=== PATIENT | female | born 1950 | race African-American/Black ===

== ENCOUNTER 2016-07-15 10:14 | Inpatient (IN) ==
--- NOTE | 2016-07-15 10:38 | Emergency Department Note ---
IMame Gwan, am scribing for, and in the presence of, Lars Wick MD 10:33 . IShamika James D, MD, personally performed the services described in this documentation, ascribed by Radha Vilchis in my presence, and it is both accurate and complete . Arrival - Arrival Chief Complaint: Syncope Stated Complaint: weakness,dizziness,feels faint,pacemaker ED Nursing Triage Note: states she feels like she is going to pass out. pt has been seen 3 times for this and nobody can find anything wrong Mode of Arrival: Ambulatory Limitations: No Limitations Source: Patient, Significant other, Old Records Reviewed, RN Notes Reviewed Time Seen by Provider: 07/15/16 10:23 - History of Present Illness HPI Narrative: Patient is a 65 y/o black female who presents to the ED for further evaluation of near syncopal episodes, generalized weakness, dizziness and nausea with an onset 2 weeks ago. Patient confirmed that she has been to the ED at [facility] at least 3 times for the same reason with negative results. Patient then stated that when her sxs came on today, she alerted Dr. Matute's office and was prompted to report to ED for further evaluation. She denies any chest pain. Patient stated that she was last seen in Dr. Matute's office 3 weeks ago to which her defibrillator and pacemaker were checked. During exam, pt stated that she has been having fast heart beats. No other problems/complaints reported in ED. Onset (ago): week(s) Consistency: constant Severity: moderate Allergies/Adverse Reactions: Allergies Allergy/AdvReac Type Severity Reaction Status Date / Time nitroglycerin AdvReac Intermediate Headache Verified 01/09/15 12:43 adhesive tape AdvReac Mild ITCHING Verified 01/09/15 12:43 NSAIDS (Non-Steroidal AdvReac Mild Fatigued Verified 01/09/15 12:43 Anti-Inflamma Home Medications: Home Medications Medication Instructions Recorded Confirmed Type Omeprazole 20 capsule PO DAILY 07/26/14 07/15/16 History Aspirin EC Tab 81 mg PO DAILY 09/19/14 07/15/16 History Pravastatin [Pravachol] 20 mg PO BEDTIME 11/30/14 07/15/16 History Isosorbide Mononitrate [Imdur] 30 mg PO DAILY #0 tablet 12/15/14 07/15/16 Rx Ascorbic Acid Tab [Vitamin C Tab] 500 mg PO DAILY 07/15/16 07/15/16 History Carvedilol [Coreg] 25 mg PO BID 07/15/16 07/15/16 History Ferrous Sulfate Tab [Feosol 325 mg PO DAILY 07/15/16 07/15/16 History Original Tab] Furosemide Tab [Lasix Tab] 40 mg PO QAM 07/15/16 07/15/16 History Loratadine Tab [Claritin Tab] 10 mg PO DAILY 07/15/16 07/15/16 History Magnesium Chloride [Slow Mag] 64 mg PO DAILY 07/15/16 07/15/16 History Potassium Chloride 40 meq PO DAILY 07/15/16 07/15/16 History Warfarin [Coumadin] 1 mg PO SUTUTHSA 07/15/16 07/15/16 History Warfarin [Coumadin] 2 mg PO MOWEFR 07/15/16 07/15/16 History amLODIPine [Norvasc] 5 mg PO DAILY 07/15/16 07/15/16 History hydrALAZINE TAB [Apresoline Tab] 10 mg PO 1200 07/15/16 07/15/16 History hydrALAZINE TAB [Apresoline Tab] 20 mg PO QAM 07/15/16 07/15/16 History hydrALAZINE TAB [Apresoline Tab] 20 mg PO QPM 07/15/16 07/15/16 History Review of System - Review of System 12 point system: reviewed and no additional remarkable complaints except as stated - Review of System Constitutional: Present: as per HPI, weakness. Absent: diaphoresis Eyes: Absent: discharge Head/Ears/Nose/Throat: Absent: earache Respiratory: Absent: cough Cardiovascular: Present: as per HPI, syncope (near syncope ). Absent: chest pain Gastrointestinal: Present: as per HPI, nausea. Absent: abdominal pain, diarrhea Genitourinary female: Absent: dysuria Musculoskeletal: Absent: arm pain, back pain, leg pain, neck pain Skin: Absent: rash Neurological: Present: as per HPI, weakness, other (dizziness). Absent: headache Medical,Surgical,& Family Hx - Medical History Cardio: History of: Cardiac Dysrhythmia (A FIB), CHF, Hypertension No history of: IA, Pacemaker Psychological: No history of: Anxiety Disorders, ADHD, Behavior Problems, Bipolar Disorder, Depression, Previous Suicide Attempt, Psychiatric/Substance Abuse Tx, Schizophrenia, Violent Behavior, Psychiatric Problems Neurology: History of: TIA (07/2014) No history of: Seizures HEENT: History of: Eye Problem (READING GLASSES), Glaucoma (POSSIBLE) Endocrine: History of: Dyslipidemia Rheumatology: History of;: Gout, Rheumatoid Arthritis Respiratory: No history of: Asthma, Bronchitis, COPD, Obstructive Sleep Apnea Gastrointestinal: History of: GERD No history of: Bowel Obstruction, Gastrointestinal Bleed, Hemorrhoids Hematology: No history of: Blood Transfusion Reaction Reproductive: History of: Breast Cancer (2005) Other: History of: Cancer (BREAST CANCER), Skin Problems (plastic tape causes rash and nitro patch and paste) No history of: Anesthesia Reactions - Surgical History Cardiac Surgeries: Sugical HX of: Cardiac Catheterization Thoracic Surgeries: Patient denies;: Organ Transplant Neurologic Surgeries: Patient denies: Neurologic Surgery HEENT Surgeries: Surgical HX of: Eye Surgery (BILATERAL CATARACT) Abdominal Surgeries: Surgical HX of: Abdominal Surgery, Colonoscopy (negative, routine), EGD (negative, routine) Reproductive Surgeries: Surgical HX of;: Breast Surgery (LEFT MASTECTOMY), Gynecologic Surgery, Hysterectomy Orthopedic Surgeries: Surgical HX of;: Implanted Devices (RIGHT SUBCLAVIAN MEDIPORT) - Family History Family History: Reports;: Family Cancer (mother(breast), sister(rectal)), Family Diabetes (brother, sister), Family Hypertension (mother, father), Family Stroke (father) Comment Only: Family Heart Disease (brother, mother) - Social History Smoking Status: Never smoker Frequency of Alcohol Use: None Type of Drug Use: None Exam Physical Examination: GENERAL: This is a black female in no apparent distress. VITAL SIGNS: HEENT: Head is normocephalic and atraumatic. Pupils are equally round and reactive to light. Extraocular movement are intact. Oropharynx is benign with moist mucous membranes. NECK: Neck is soft and supple without tenderness. There are no masses. There is no lymphadenopathy. LUNGS: Lungs are clear to auscultation bilaterally. Chest rises symmetrically. There is no chest wall tenderness. CV: Heart is regular rate and rhythm without murmurs, rubs, or gallops. ABDOMEN: Abdomen is soft, non-tender to palpation. There are no abnormal masses palpated. There is no organomegaly. Bowel sounds are present and active. SKIN: Skin is warm and dry. No rash. EXTREMITIES: Patient has full range of motion without tenderness. There is no pedal edema. NEUROLOGIC: Awake, alert, and oriented x4. Cranial nerves II through XII are grossly intact. There are no motorsensory deficits. PSYCHIATRIC: Normal affect. Normal mood. Vital Signs: Vital Signs Temperature 98.0 F 07/15/16 10:29 Pulse Rate 61 07/15/16 10:29 Respiratory Rate 20 07/15/16 10:29 Blood Pressure 169/81 07/15/16 10:29 O2 Sat by Pulse Oximetry 100 07/15/16 10:29 Course Course Narrative: AICD was interrogated. Patient has short periods of atrial fib lasting at most 10 minutes. This does not seem to be associated with her symptoms. - Consultations Consultation #1: Discussed with Dr. Matute. He will see the patient in the emergency department. Patient will be admitted to his service. Time: 11:26 Disposition Clinical Impression: Near syncope, Cardiomyopathy, Essential hypertension, Paroxysmal a-fib Case discussed with: patient Disposition: Still a Patient Condition: Stable Time of Disposition: 11:58
[2016-07-15 12:25] LABS: Basophils # 0.1 10*3/uL (0.0-0.2); Basophils % 0.5 % (0.0-0.8); Eosinophils # 0.2 10*3/uL (0.0-0.87); Eosinophils % 1.9 % (0.00-10.9); Hematocrit 40.2 VOL% (35.7-47.0); Hemoglobin 13.7 GM/DL (12.0-16.0); Immature Granulocytes % 0.5 %; Immature Granulocytes Absolute 0.05 #; Mean Corpuscular HGB Conc 34.1 GM/DL (32-36); Mean Corpuscular Hemoglobin 27 PG (27-34); Mean Corpuscular Volume 79.6 FL (87-102); Mean Platelet Volume 11.3 FL (9.6-12.0); Monocytes # 0.9 10*3/uL (0.11-0.8); Monocytes % 9.1 % (1.7-12.7); Neutrophils # 6.8 10*3/uL (1.4-7.4); Platelet Count 183 T/CUMM (130-400); Red Blood Count 5.05 MC/CUMM (3.8-5.5); Red Cell Distribution Width 15.7 % (9.3-17.3)
[2016-07-15 12:37] LABS: INR 1.7; PT Patient Result 18.7 SECS; Partial Thromboplastin Time 36.4 SECS (0-40)
[2016-07-15 12:57] LABS: Albumin 3.8 G/DL (3.4-5.0); Bilirubin,Total 0.7 MG/DL (0.2-1.0); Calcium 9.5 MG/DL (8.5-10.1); Osmolality,Calculated 293.6 MOS/KG (273-304); Potassium 4.1 MMOL/L (3.5-5.1); Total Protein 6.9 G/DL (6.4-8.3)
[2016-07-15] MEDS ORDERED: cloNIDine 0.1 MG TABLET PO PRN ×2 (12:58→14:28)
--- NOTE | 2016-07-15 12:59 | XRay Report ---
XR chest 2V Indication: Syncope Comparison: Chest x-ray dated January 13, 2015 Technique: Frontal and lateral views of the chest. Findings: Continued moderate cardiomegaly. Right-sided port catheter and pacemaker apparatus appear unchanged. Chronic change of the lungs without focal consolidation, pleural effusion, or pneumothorax. Visualized osseous and surrounding soft tissue structures appear grossly unchanged. Diffuse osteopenia and multilevel bridging osteophytes of the spine. IMPRESSION: Continued moderate cardiomegaly without montez pulmonary edema. PROCEDURE INTERPRETED AT [facility] DEPARTMENT OF RADIOLOGY Final Report Signed by: Dr Chapincito Amezcua
--- NOTE | 2016-07-15 14:30 | Cardiology History & Physical ---
Monty Acosta April RN, am scribing for, and in the presence of, Levi Matute MD 14:30. Assessment and Plan - Time spent with patient Time spent with patient: Greater than 30 minutes (Due to assessment, planning, documentation, medication review) (1) Essential hypertension Status: Chronic Assessment and plan: We will add as needed clonidine and watch closely. Current Visit: Yes (2) Near syncope Status: Acute Current Visit: Yes (3) Paroxysmal a-fib Status: Chronic Current Visit: Yes (4) Chronic anticoagulation Status: Chronic Assessment and plan: She is chronically anticoagulated on warfarin. Current Visit: Yes (5) Generalized weakness Status: Acute Current Visit: Yes (6) Nonischemic cardiomyopathy Problem details: EF 35% echo done at Dr. 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 Matute Ms. Gardiner is a 65 year old female who is routinely followed by Dr. Matute with a history of paroxysmal atrial fibrillation, nonischemic cardiomyopathy, hypertension, breast cancer, arthritis, gout, and TIAs. She is currently anticoagulated on warfarin. She had an echo done at Dr. Matute's office 06-25 with ejection fraction 35%. She had dual-chamber ICD implant on January 12, [address] Mead for sustained VT, recurrent atrial flutter, cardiomyopathy, heart failure. Heart cath done by Dr. Salazar January 24, 2010 that showed only mild irregularities throughout the vessels and no discrete coronary lesions. She has had several cardioversions in the past. Other surgical history includes bilateral cataracts, appendectomy, mastectomy, and hysterectomy. Family history includes father with stroke, mother with breast cancer and heart disease, and siblings with heart disease. She reports she is a lifetime non-smoker. She lives alone and uses a cane for extra stability. She denies any recent falls. Ms. Gardiner reports dizziness and weakness that has been ongoing for about 3 weeks. She has not passed out but has had several episodes where she felt like she would. These episodes occur mostly when she is up and moving, but have occurred at times when sitting. She reports she has been seen at [facility] 3 times in the last 3 weeks for episodes like this. We will try to get those records. Today when her symptoms came on she got Dr. Matute's office and was told to report to the emergency department for further evaluation. She denies having any chest pain with these episodes, she does state that she gets short of breath at times with these episodes. She reports having palpitations but says they do not necessarily correlate with the symptoms. ICD was interrogated today by [employer] solar sales representative. He notes the interrogation was normal, she had some short 3-9 minute episodes of atrial fibrillation but otherwise nothing indicated a near syncopal episode. CBC is unremarkable, INR is 1.7. All other labs and chest x-ray are pending. Ms. Gardiner is seen in the emergency department. She reports she is not having any dizziness or shortness of breath presently. She continues to deny chest pain. She is currently in atrial fibrillation with heart rates in the 60s. She is not wearing oxygen, O2 sat is 100%. Blood pressures 174/107. She states it is been being elevated some at home as well. She recently saw Dr. Matute in the office was having problems with her blood pressure is mildly and. He did make some medication changes. We will restart her home meds and continue to monitor this. This patient is well known to me with a history of cardiomyopathy which is severe. She had runs of ventricular tachycardia around the time of her ICD placement. She has had presyncope in the past but has not had any documented ventricular rhythm issues and is admitted now with recurring near syncope and severe hypertension. We are adjusting her blood pressure medications and will hopefully be able to get this under control fairly quickly. Her rhythm has been stable based on the ICD interrogation done earlier today. Home Medications Medication Instructions Recorded Confirmed Type Omeprazole 20 capsule PO DAILY 07/26/14 07/15/16 History Aspirin EC Tab 81 mg PO DAILY 09/19/14 07/15/16 History Pravastatin [Pravachol] 20 mg PO BEDTIME 11/30/14 07/15/16 History Isosorbide Mononitrate [Imdur] 30 mg PO DAILY #0 tablet 12/15/14 07/15/16 Rx Ascorbic Acid Tab [Vitamin C Tab] 500 mg PO DAILY 07/15/16 07/15/16 History Carvedilol [Coreg] 25 mg PO BID 07/15/16 07/15/16 History Ferrous Sulfate Tab [Feosol 325 mg PO DAILY 07/15/16 07/15/16 History Original Tab] Furosemide Tab [Lasix Tab] 40 mg PO QAM 07/15/16 07/15/16 History Loratadine Tab [Claritin Tab] 10 mg PO DAILY 07/15/16 07/15/16 History Magnesium Chloride [Slow Mag] 64 mg PO DAILY 07/15/16 07/15/16 History Potassium Chloride 40 meq PO DAILY 07/15/16 07/15/16 History Warfarin [Coumadin] 1 mg PO SUTUTHSA 07/15/16 07/15/16 History Warfarin [Coumadin] 2 mg PO MOWEFR 07/15/16 07/15/16 History amLODIPine [Norvasc] 5 mg PO DAILY 07/15/16 07/15/16 History hydrALAZINE TAB [Apresoline Tab] 10 mg PO 1200 07/15/16 07/15/16 History hydrALAZINE TAB [Apresoline Tab] 20 mg PO QAM 07/15/16 07/15/16 History hydrALAZINE TAB [Apresoline Tab] 20 mg PO QPM 07/15/16 07/15/16 History Allergies Allergy/AdvReac Type Severity Reaction Status Date / Time nitroglycerin AdvReac Intermediate Headache Verified 01/09/15 12:43 adhesive tape AdvReac Mild ITCHING Verified 01/09/15 12:43 NSAIDS (Non-Steroidal AdvReac Mild Fatigued Verified 01/09/15 12:43 Anti-Inflamma - Constitutional Constitutional: Present: as per HPI - EENT Eyes: Present: requires corrective lense. Absent: loss of vision Ears: Present: tinnitus. Absent: ear pain Nose, mouth and throat: Absent: dysphagia, epistaxis, headache(s), hoarseness, neck pain, sore throat - Cardiovascular Cardiovascular: Present: dyspnea, lightheadedness, palpitations. Absent: chest pain at rest, chest pain with activity, diaphoresis, edema, radiating jaw, neck or arm pain, orthopnea - Respiratory Respiratory: Present: cough, dyspnea. Absent: hemoptysis, wheezing - Gastrointestinal Gastrointestinal: Absent: abdominal pain, constipation, diarrhea, hematemesis, hematochezia, melena, nausea, vomiting - Genitourinary Genitourinary: Absent: dysuria, hematuria - Musculoskeletal Musculoskeletal: Present: limited range of motion, muscle weakness. Absent: back pain - Neurological Neurological: Present: abnormal gait, dizziness, other (Near-syncope). Absent: confusion, frequent falls, headache(s) - Psychiatric Psychiatric: Absent: anxiety, depression - Endocrine Endocrine: Present: fatigue - Hematologic/Lymphatic Hematologic/Lymphatic: Present: easy bruising. Absent: easy bleeding Medical,Surgical,& Family Hx - Medical History Cardio: History of: Cardiac Dysrhythmia (A FIB), CHF, Hypertension Psychological: No history of: Previous Suicide Attempt Neurology: History of: TIA (07/2014) HEENT: History of: Eye Problem (READING GLASSES) Endocrine: History of: Dyslipidemia Rheumatology: History of;: Gout, Rheumatoid Arthritis Gastrointestinal: History of: GERD Reproductive: History of: Breast Cancer (2005) Other: History of: Cancer (BREAST CANCER), Skin Problems (plastic tape causes rash and nitro patch and paste) - Surgical History Cardiac Surgeries: Sugical HX of: Cardiac Catheterization (1999), Internal Defibrillator (Dual-chamber ICD, 2014) HEENT Surgeries: Surgical HX of: Eye Surgery (BILATERAL CATARACT) Abdominal Surgeries: Surgical HX of: Abdominal Surgery, Colonoscopy (negative, routine), EGD (negative, routine) Reproductive Surgeries: Surgical HX of;: Breast Surgery (LEFT MASTECTOMY), Gynecologic Surgery, Hysterectomy Orthopedic Surgeries: Surgical HX of;: Implanted Devices (RIGHT SUBCLAVIAN MEDIPORT) - Family History Family History: Reports;: Family Cancer (mother(breast), sister(rectal)), Family Diabetes (brother, sister), Family Heart Disease (brother, mother, sister ), Family Hypertension (mother, father), Family Stroke (father) - Social History Smoking Status: Never smoker Have you smoked in the last 12 months: No Frequency of Alcohol Use: None Type of Drug Use: None Functional capacity: uses cane/walker Cardiology Physical Exam - Constitutional Vitals: Vital Signs Temp Pulse Resp BP Pulse Ox 98.0 F 61 20 174/107 99 07/15/16 10:29 07/15/16 12:00 07/15/16 12:00 07/15/16 12:00 07/15/16 12:00 Intake and Output 07/14/16 07/15/16 07/15/16 22:59 06:59 14:59 Other: Weight 176 lb Patient Weight 07/16/16 06:59 Weight 176 lb General appearance: no acute distress, over weight - Head Head exam: Absent: abrasion, contusion, hematoma - Eye Eye exam: Absent: laceration to eyelids Pupils: Absent: constricted, dilated - Neck Neck exam: Absent: tenderness - Respiratory Respiratory exam: Present: clear to auscultation bilaterally. Absent: accessory muscle use, chest wall tenderness - Cardiovascular Cardiovascular exam: Present: irregular rhythm. Absent: diastolic murmur, rubs , systolic murmur - GI/Abdominal GI/Abdominal exam: Present: normal bowel sounds, soft. Absent: tenderness - Extremities Exam Extremities exam: Absent: calf tenderness, edema - Neurological Exam Neurological exam: Present: alert, oriented X3 - Psychiatric Psychiatric exam: Present: normal affect, normal mood - Skin Skin exam: Present: warm, dry. Absent: abrasion, cyanosis Result/EKG - Labs CBC & BMP: 07/15/16 11:59 07/15/16 11:59 Lab Results: I have reviewed the past 24 hour labs Labs: Laboratory Results - last 24 hr 07/15/16 11:59 WBC 10.0 RBC 5.05 Hgb 13.7 Hct 40.2 MCV 79.6 L MCH 27 MCHC 34.1 RDW 15.7 Plt Count 183 MPV 11.3 Neut % (Auto) 68.0 Lymph % (Auto) 20.0 L [place] % (Auto) 9.1 Eos % (Auto) 1.9 Baso % (Auto) 0.5 Neut # (Auto) 6.8 Lymph # (Auto) 2.0 [place] # (Auto) 0.9 H Eos # (Auto) 0.2 Baso # (Auto) 0.1 Immature Gran % 0.5 Nucleated RBC % 0.0 Immature Gran # 0.05 Nucleated RBCs # 0.00 - EKG EKG results: interpreted by me EKG shows: atrial fibrillation I, Levi Matute MD, personally performed the services described in this documentation, ascribed by Neha Millan RN in my presence, and it is both accurate and complete 430 .
[2016-07-15] MEDS ORDERED: MAGNESIUM SULF RIDER 4 GM in PREMIX 1 EACH IV PRN (15:31)
[2016-07-15] MEDS ORDERED: MAGNESIUM SULF RIDER 2 GM in PREMIX 1 EACH IV PRN (15:31)
[2016-07-15] MEDS ORDERED: SODIUM CHLORIDE 0.9% 1,000 ML IV SCH (15:31)
--- NOTE | 2016-07-15 16:04 | EKG Report ---
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
[2016-07-15 17:17] LABS: Basophils # 0.1 10*3/uL (0.0-0.2); Basophils % 0.5 % (0.0-0.8); Eosinophils # 0.2 10*3/uL (0.0-0.87); Hematocrit 39.5 VOL% (35.7-47.0); Hemoglobin 13.3 GM/DL (12.0-16.0); Immature Granulocytes % 0.2 %; Immature Granulocytes Absolute 0.02 #; Lymphocytes # 2.2 10*3/uL (1.4-4.0); Lymphocytes % 22.2 % (21.3-54.2); Mean Corpuscular HGB Conc 33.7 GM/DL (32-36); Mean Corpuscular Hemoglobin 27 PG (27-34); Mean Corpuscular Volume 78.8 FL (87-102); Mean Platelet Volume 11.9 FL (9.6-12.0); Monocytes # 0.9 10*3/uL (0.11-0.8); Monocytes % 9.3 % (1.7-12.7); Neutrophils # 6.4 10*3/uL (1.4-7.4); Neutrophils % 65.8 % (38.7-73.9); Platelet Count 172 T/CUMM (130-400); Red Blood Count 5.01 MC/CUMM (3.8-5.5); Red Cell Distribution Width 15.6 % (9.3-17.3); White Blood Count 9.7 T/CUMM (4-12)
[2016-07-15 17:28] LABS: INR 1.8; PT Patient Result 20.2 SECS
[2016-07-15 17:39] LABS: Troponin I Only 0.035 NG/ML (0.00-0.045)
--- NOTE | 2016-07-15 17:57 | EKG Report ---
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
[2016-07-15] MEDS ORDERED: hydrALAZINE 10 MG TABLET PO SCH (19:00)
[2016-07-15 21:12] LABS: Troponin I Only 0.046 NG/ML (0.00-0.045)
[2016-07-15] MEDS: PRAVASTATIN 20 MG TABLET PO SCH (21:24)
[2016-07-15] MEDS: CARVEDILOL 25 MG TABLET PO SCH (21:24)
[2016-07-16 00:21] LABS: Troponin I Only 0.048 NG/ML (0.00-0.045)
--- NOTE | 2016-07-16 07:20 | Physician Query Form ---
CLICK EDIT DOCUMENT TO SELECT QUERY ANSWER --> OK --> SIGN Stacey Cardenas RN, CCDS Certified Clinical Telecom Specialist W) [phone] (f) [phone] [email or web address] PROVIDERS: Make your selection(s) from the choices in EACH section by typing an "x" and enter comments in the comment section. Please use your independent medical judgment in providing your response. This request does not imply that any particular answer is desired or expected. CLINICAL INDICATORS: (Providers should not edit this section) The medical record indicates that the patient was admitted with syncope, weakness, dizziness creatinine of 2.20# and GFR of 28# . Clarify which of the following most accurately represents the patient's renal status: ( ) Acute kidney injury (non-traumatic) ( ) Acute renal failure ( ) Acute renal failure with underlying Chronic Kidney Disease (CKD) - please provide stage below ( ) Acute renal failure with pathological renal lesion ( ) Acute renal failure with necrosis ( ) tubular ( ) medullary ( ) cortical ( ) CKD - please provide stage below ( ) End Stage Renal Disease ( ) Acute interstitial nephritis ( ) Hepatorenal syndrome ( ) Other, please specify: ( ) Clinically unable to determine Chronic Kidney Disease Stages Source: National Kidney Disease Foundation ( ) Stage I (eGFR > or = 90) ( ) Stage II (eGFR 60 - 89) ( ) Stage III (eGFR 30 - 59) ( ) Stage IV (eGFR 15 - 29) ( ) Stage V (eGFR < 15 or dialysis) COMMENTS: PLEASE ALSO DOCUMENT RESPONSE IN PROGRESS NOTES AND/OR DISCHARGE SUMMARY Use of terms such as suspected, likely, or probable (associated with a specific diagnosis that is being evaluated, monitored, or treated as if it exists) are acceptable and can be restated in the discharge summary if not ruled out. MTDD
--- NOTE | 2016-07-16 07:41 | EKG Report ---
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
[2016-07-16] MEDS: FUROSEMIDE 40 MG TABLET PO SCH (08:46)
[2016-07-16] MEDS: ASPIRIN EC 81 MG TABLET PO SCH (08:46)
[2016-07-16] MEDS: CARVEDILOL 25 MG TABLET PO SCH ×2 (08:47→21:10)
[2016-07-16] MEDS: ISOSORBIDE MONONITRATE 30 MG TABLET PO SCH (08:48)
[2016-07-16] MEDS: POTASSIUM CHLORIDE 20 MEQ TABLET PO SCH (08:48)
[2016-07-16] MEDS: FERROUS SULFATE 325 MG TABLET PO SCH (08:48)
[2016-07-16] MEDS: PANTOPRAZOLE 40 MG TABLET PO SCH (08:48)
[2016-07-16] MEDS: MAGNESIUM CHLORIDE 64 MG TABLET PO SCH (08:48)
[2016-07-16] MEDS: hydrALAZINE 10 MG TABLET PO SCH ×3 (08:49→21:11)
[2016-07-16] MEDS: ASCORBIC ACID 500 MG TABLET PO SCH (08:49)
[2016-07-16] MEDS: LORATADINE 10 MG TABLET PO SCH (08:49)
[2016-07-16] MEDS: amLODIPine 5 MG TABLET PO SCH (08:49)
[2016-07-16 09:06] LABS: Basophils # 0.1 10*3/uL (0.0-0.2); Basophils % 0.7 % (0.0-0.8); Eosinophils # 0.2 10*3/uL (0.0-0.87); Eosinophils % 1.9 % (0.00-10.9); Hematocrit 41.3 VOL% (35.7-47.0); Hemoglobin 14.2 GM/DL (12.0-16.0); Immature Granulocytes % 0.2 %; Immature Granulocytes Absolute 0.02 #; Lymphocytes # 1.8 10*3/uL (1.4-4.0); Lymphocytes % 20.9 % (21.3-54.2); Mean Corpuscular HGB Conc 34.4 GM/DL (32-36); Mean Corpuscular Hemoglobin 27 PG (27-34); Mean Corpuscular Volume 79.6 FL (87-102); Mean Platelet Volume 11.4 FL (9.6-12.0); Monocytes # 0.8 10*3/uL (0.11-0.8); Monocytes % 9.3 % (1.7-12.7); Neutrophils # 5.8 10*3/uL (1.4-7.4); Platelet Count 180 T/CUMM (130-400); Red Blood Count 5.19 MC/CUMM (3.8-5.5); Red Cell Distribution Width 15.6 % (9.3-17.3); White Blood Count 8.7 T/CUMM (4-12)
[2016-07-16 09:18] LABS: INR 1.7; PT Patient Result 18.6 SECS
[2016-07-16 09:42] LABS: Calcium 9.4 MG/DL (8.5-10.1); Osmolality,Calculated 284.3 MOS/KG (273-304); Potassium 3.9 MMOL/L (3.5-5.1)
--- NOTE | 2016-07-16 16:30 | Cardiology Progress Note ---
Monty Acosta April RN, am scribing for, and in the presence of, Levi Matute MD 16:30. Assessment and Plan (1) Essential hypertension Status: Chronic Current Visit: Yes (2) Near syncope Status: Acute Current Visit: Yes (3) Paroxysmal a-fib Status: Chronic Current Visit: Yes (4) Chronic anticoagulation Status: Chronic Assessment and plan: She is chronically anticoagulated on warfarin. Current Visit: Yes (5) Generalized weakness Status: Acute Current Visit: Yes (6) Nonischemic cardiomyopathy Problem details: EF 35% echo done at Dr. 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 Gardiner is seen resting in bed no acute distress. She denies any chest pain , shortness of breath, or palpitations. She reports she continues to have some dizziness when she gets up at the bathroom, she did not feel like she would pass out. tungsten tender currently shows atrial fibrillation with heart rates in the 60s. Her blood pressure is slightly better today, this morning was 129/93. Chest x-ray done yesterday showed moderate cardiomegaly without montez pulmonary edema. Her troponin last night was trivially elevated at 0.048. Her CK and CK-MB were both negative. She denies having had any chest pain since admission. Patient is better and her blood pressure is better controlled. Will increase activity likely discharge tomorrow. Exam (Progress Note) - Constitutional Vitals: Period Temp Pulse Resp BP Sys/Ballard Pulse Ox Last 24 Hr 97.1 F-98.8 F 59-88 16-20 102-174/65-111 98-100 Exam: General appearance: no acute distress, over weight - Head Head exam: Absent: abrasion, contusion, hematoma - Eye Eye exam: Absent: laceration to eyelids Pupils: Absent: constricted, dilated - Neck Neck exam: Absent: tenderness - Respiratory Respiratory exam: Present: clear to auscultation bilaterally. Absent: accessory muscle use, chest wall tenderness - Cardiovascular Cardiovascular exam: Present: irregular rhythm. Absent: diastolic murmur, rubs , systolic murmur - GI/Abdominal GI/Abdominal exam: Present: normal bowel sounds, soft. Absent: tenderness - Extremities Exam Extremities exam: Absent: calf tenderness, edema - Neurological Exam Neurological exam: Present: alert, oriented X3 - Psychiatric Psychiatric exam: Present: normal affect, normal mood - Skin Skin exam: Present: warm, dry. Absent: abrasion, cyanosis Result/EKG - Labs CBC & BMP: 07/16/16 09:00 07/16/16 09:00 Lab Results: I have reviewed the past 24 hour labs Labs: Laboratory Results - last 24 hr 07/15/16 07/15/16 07/15/16 11:59 11:59 11:59 WBC 10.0 RBC 5.05 Hgb 13.7 Hct 40.2 MCV 79.6 L MCH 27 MCHC 34.1 RDW 15.7 Plt Count 183 MPV 11.3 Neut % (Auto) 68.0 Lymph % (Auto) 20.0 L [place] % (Auto) 9.1 Eos % (Auto) 1.9 Baso % (Auto) 0.5 Neut # (Auto) 6.8 Lymph # (Auto) 2.0 [place] # (Auto) 0.9 H Eos # (Auto) 0.2 Baso # (Auto) 0.1 Immature Gran % 0.5 Nucleated RBC % 0.0 Immature Gran # 0.05 Nucleated RBCs # 0.00 INR 1.7 PT Patient/Control Mix 18.7 D Circ Anticoag PTT 36.4 D Sodium 146 H Potassium 4.1 Chloride 105 Carbon Dioxide 31 Anion Gap 14.1 BUN 26 H Creatinine 2.20 H GFR Calculation 28 BUN/Creatinine Ratio 11.00 Glucose 82 Calculated Osmolality 293.6 Calcium 9.5 Magnesium Total Bilirubin 0.70 AST 18 ALT 20 Alkaline Phosphatase 117 Total Creatine Kinase CK-MB (CK-2) Troponin I Total Protein 6.9 Albumin 3.8 Globulin 3.1 Albumin/Globulin Ratio 1.2 07/15/16 07/15/16 07/15/16 12:27 16:37 16:37 WBC 9.7 RBC 5.01 Hgb 13.3 Hct 39.5 MCV 78.8 L MCH 27 MCHC 33.7 RDW 15.6 Plt Count 172 MPV 11.9 Neut % (Auto) 65.8 Lymph % (Auto) 22.2 [place] % (Auto) 9.3 Eos % (Auto) 2.0 Baso % (Auto) 0.5 Neut # (Auto) 6.4 Lymph # (Auto) 2.2 [place] # (Auto) 0.9 H Eos # (Auto) 0.2 Baso # (Auto) 0.1 Immature Gran % 0.2 Nucleated RBC % 0.0 Immature Gran # 0.02 Nucleated RBCs # 0.00 INR 1.8 PT Patient/Control Mix 20.2 Circ Anticoag PTT Sodium Potassium Chloride Carbon Dioxide Anion Gap BUN Creatinine GFR Calculation BUN/Creatinine Ratio Glucose Calculated Osmolality Calcium Magnesium 2.2 Total Bilirubin AST ALT Alkaline Phosphatase Total Creatine Kinase CK-MB (CK-2) Troponin I Total Protein Albumin Globulin Albumin/Globulin Ratio 07/15/16 07/15/16 07/15/16 16:37 20:37 23:32 WBC RBC Hgb Hct MCV MCH MCHC RDW Plt Count MPV Neut % (Auto) Lymph % (Auto) [place] % (Auto) Eos % (Auto) Baso % (Auto) Neut # (Auto) Lymph # (Auto) [place] # (Auto) Eos # (Auto) Baso # (Auto) Immature Gran % Nucleated RBC % Immature Gran # Nucleated RBCs # INR PT Patient/Control Mix Circ Anticoag PTT Sodium Potassium Chloride Carbon Dioxide Anion Gap BUN Creatinine GFR Calculation BUN/Creatinine Ratio Glucose Calculated Osmolality Calcium Magnesium Total Bilirubin AST ALT Alkaline Phosphatase Total Creatine Kinase 62 76 D 56 D CK-MB (CK-2) < 1.0 < 1.0 < 1.0 Troponin I 0.035 0.046 H D 0.048 H Total Protein Albumin Globulin Albumin/Globulin Ratio 07/16/16 07/16/16 07/16/16 09:00 09:00 09:00 WBC 8.7 RBC 5.19 Hgb 14.2 Hct 41.3 MCV 79.6 L MCH 27 MCHC 34.4 RDW 15.6 Plt Count 180 MPV 11.4 Neut % (Auto) 67.0 Lymph % (Auto) 20.9 L [place] % (Auto) 9.3 Eos % (Auto) 1.9 Baso % (Auto) 0.7 Neut # (Auto) 5.8 Lymph # (Auto) 1.8 [place] # (Auto) 0.8 Eos # (Auto) 0.2 Baso # (Auto) 0.1 Immature Gran % 0.2 Nucleated RBC % 0.0 Immature Gran # 0.02 Nucleated RBCs # 0.00 INR 1.7 PT Patient/Control Mix 18.6 Circ Anticoag PTT Sodium 141 Potassium 3.9 Chloride 104 Carbon Dioxide 30 Anion Gap 10.9 BUN 22 H Creatinine 2.00 H GFR Calculation 32 BUN/Creatinine Ratio 11.00 Glucose 113 H Calculated Osmolality 284.3 Calcium 9.4 Magnesium 2.0 Total Bilirubin AST ALT Alkaline Phosphatase Total Creatine Kinase CK-MB (CK-2) Troponin I Total Protein Albumin Globulin Albumin/Globulin Ratio - Diagnostic Findings Procedure: Chest x-ray: report reviewed by me - EKG EKG results: interpreted by me EKG shows: atrial fibrillation IGiovani Wesley, MD, personally performed the services described in this documentation, ascribed by Neha Millan RN in my presence, and it is both accurate and complete 630 .
[2016-07-16] MEDS: PRAVASTATIN 20 MG TABLET PO SCH (21:11)
--- NOTE | 2016-07-17 08:05 | EKG Report ---
Stationary ECG Study [facility] Test Date: 07/17/2016 7:40 AM Pat Name: SERA TREVIZO Department: Room: 272 Gender: F Nurse Quality: : 1950 Requested by: Levi Matute Order Number: [id number] Reading MD: LEVI MATUTE Intervals [place] Rate: 73 P: 203 MS: 153 QRS: -51 QRSD: 114 T: 140 QT: 448 QTc: 474 Interpretive Statements ELECTRONIC ATRIAL PACEMAKER LEFT ANTERIOR FASCICULAR BLOCK LEFT VENTRICULAR HYPERTROPHY AND ST-T CHANGE POSSIBLE ANTERIOR MYOCARDIAL INFARCTION, OF INDETERMINATE AGE Electronically Signed On 07-17-16 16:12:35 CDT by LEVI MATUTE [email or web address]
[2016-07-17 08:17] LABS: Basophils # 0.1 10*3/uL (0.0-0.2); Basophils % 0.6 % (0.0-0.8); Eosinophils # 0.2 10*3/uL (0.0-0.87); Eosinophils % 2.8 % (0.00-10.9); Hematocrit 40.8 VOL% (35.7-47.0); Hemoglobin 13.7 GM/DL (12.0-16.0); Immature Granulocytes % 0.5 %; Immature Granulocytes Absolute 0.04 #; Lymphocytes # 1.8 10*3/uL (1.4-4.0); Lymphocytes % 23.1 % (21.3-54.2); Mean Corpuscular HGB Conc 33.6 GM/DL (32-36); Mean Corpuscular Hemoglobin 27 PG (27-34); Mean Corpuscular Volume 79.8 FL (87-102); Monocytes # 0.8 10*3/uL (0.11-0.8); Monocytes % 9.9 % (1.7-12.7); Neutrophils # 4.9 10*3/uL (1.4-7.4); Neutrophils % 63.1 % (38.7-73.9); Platelet Count 173 T/CUMM (130-400); Red Blood Count 5.11 MC/CUMM (3.8-5.5); Red Cell Distribution Width 15.4 % (9.3-17.3); White Blood Count 7.8 T/CUMM (4-12)
[2016-07-17] MEDS: FUROSEMIDE 40 MG TABLET PO SCH (08:17)
[2016-07-17] MEDS: LORATADINE 10 MG TABLET PO SCH (08:17)
[2016-07-17] MEDS: POTASSIUM CHLORIDE 20 MEQ TABLET PO SCH (08:17)
[2016-07-17] MEDS: hydrALAZINE 10 MG TABLET PO SCH ×2 (08:17→12:17)
[2016-07-17] MEDS: amLODIPine 5 MG TABLET PO SCH (08:18)
[2016-07-17] MEDS: ASPIRIN EC 81 MG TABLET PO SCH (08:18)
[2016-07-17] MEDS: MAGNESIUM CHLORIDE 64 MG TABLET PO SCH (08:18)
[2016-07-17] MEDS: PANTOPRAZOLE 40 MG TABLET PO SCH (08:18)
[2016-07-17] MEDS: ISOSORBIDE MONONITRATE 30 MG TABLET PO SCH (08:18)
[2016-07-17] MEDS: FERROUS SULFATE 325 MG TABLET PO SCH (08:18)
[2016-07-17] MEDS: ASCORBIC ACID 500 MG TABLET PO SCH (08:18)
[2016-07-17] MEDS: CARVEDILOL 25 MG TABLET PO SCH (08:18)
[2016-07-17 11:48] VITALS: BP 143/94
--- NOTE | 2016-07-17 14:59 | Discharge Summary ---
Motny Acosta April, RN, am scribing for, and in the presence of, Levi Matute MD 14:59. 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 Gardiner is routinely followed by Dr. Matute with a history of paroxysmal atrial fibrillation, nonischemic cardiomyopathy, hypertension, breast cancer, arthritis, gout, and TIAs. She presented to the emergency department 07/15/2016 with complaints of dizziness and weakness has been ongoing for about 3 weeks. She had not passed out but had several episodes where she felt like she would. She did not have any chest pain, but states she did get short of breath at times with these episodes. ICD was interrogated was noted to be functioning normally. Her blood pressure in the emergency department elevated as high as the 170s over 100s. She states it is been being elevated at home as well. Her hydralazine has been increased during this admission to 20 mg every morning, 10 mg at noon, and 20 mg at bedtime. Ms. Gardiner is seen resting in bed in no acute distress. She continues to deny any chest pain. She reports she had one episode of dizziness this morning, but states it is very mild compared to what she was having before admission. She has not had any episodes where she felt like she would pass out since admission.Blood pressures have improved during this admission, current pressure 143/94. Today's labs are unremarkable. electronic device monitor currently shows atrial fibrillation with heart rates in the 60s. Ms. Gardiner has reached maximum benefit from hospitalization and will be discharged home today. Will resume all home meds with the only change being hydralazine to 20 mg every morning, 10 mg at noon, and 20 mg nightly. We will schedule follow-up with Dr. Matute in 1 month with BMP and EKG. - Time spent with patient Time with patient DS: Greater than 30 minutes Diagnosis - Discharge Diagnosis (1) Essential hypertension Status: Chronic (2) Near syncope Status: Resolved (3) Paroxysmal a-fib Status: Chronic (4) Chronic anticoagulation Status: Chronic (5) Generalized weakness Status: Resolved (6) Nonischemic cardiomyopathy Status: Chronic (7) Presence of double chamber implantable cardioverter-defibrillator (ICD) Status: Chronic Specialty Discharge - Follow Up or Referrals Follow up with: Levi Matute MD [Physician] - 1 Month (with bmp ekg ) Discharge Plan - Discharge Data Disposition: Disch To Home/Self Care Condition at Discharge: Stable Discharge Diet: heart healthy Activity: resume usual activities as tolerated Hygiene: no restrictions Weight Bearing at Discharge: weight bear as tolerated Driving: no restrictions Contact your physician if you experience:: fever over 101, Difficulty voiding, Redness or swelling, Nausea/Vomiting, Shortness of breath, Bleeding, pain uncontrolled by pain medications - Discharge Medications New hydrALAZINE TAB [Apresoline Tab] 20 mg PO BID #60 tablet Continue Omeprazole 20 capsule PO DAILY Aspirin EC Tab 81 mg PO DAILY Pravastatin [Pravachol] 20 mg PO BEDTIME Isosorbide Mononitrate [Imdur] 30 mg PO DAILY #0 tablet Loratadine Tab [Claritin Tab] 10 mg PO DAILY PRN PRN Reason: Allergy Symptoms Furosemide Tab [Lasix Tab] 40 mg PO QAM Carvedilol [Coreg] 25 mg PO BID Ascorbic Acid Tab [Vitamin C Tab] 500 mg PO DAILY Warfarin [Coumadin] 1 mg PO SUTUTHSA Warfarin [Coumadin] 2 mg PO MOWEFR hydrALAZINE TAB [Apresoline Tab] 10 mg PO 1200 Potassium Chloride 40 meq PO DAILY amLODIPine [Norvasc] 5 mg PO DAILY Ferrous Sulfate Tab [Feosol Original Tab] 325 mg PO DAILY Magnesium Chloride [Slow Mag] 64 mg PO DAILY Discontinued hydrALAZINE TAB [Apresoline Tab] 20 mg PO QPM hydrALAZINE TAB [Apresoline Tab] 20 mg PO QAM - Follow Up or Referral Follow Up: Levi Matute MD [Physician] - 1 Month (with [facility] ekg ) - Forms/Instructions Exam - Constitutional Vitals: Period Temp Pulse Resp BP Sys/Ballard Pulse Ox Last 24 Hr 97.8 F-98.9 F 53-97 18-20 118-154/57-101 97-100 Exam: General appearance: no acute distress, over weight - Head Head exam: Absent: abrasion, contusion, hematoma - Eye Eye exam: Absent: laceration to eyelids Pupils: Absent: constricted, dilated - Neck Neck exam: Absent: tenderness - Respiratory Respiratory exam: Present: clear to auscultation bilaterally. Absent: accessory muscle use, chest wall tenderness - Cardiovascular Cardiovascular exam: Present: irregular rhythm. Absent: diastolic murmur, rubs , systolic murmur - GI/Abdominal GI/Abdominal exam: Present: normal bowel sounds, soft. Absent: tenderness - Extremities Exam Extremities exam: Absent: calf tenderness, edema - Neurological Exam Neurological exam: Present: alert, oriented X3 - Psychiatric Psychiatric exam: Present: normal affect, normal mood - Skin Skin exam: Present: warm, dry. Absent: abrasion, cyanosis Discharge Results Procedures and tests throughout hospitalization: Pending Orders 07/18/16 04:00 BMP w/ Mg [Basic Metabolic Panel w/Mg] IN AM CBC [Comp Blood Count Auto Diff] IN AM Labs on day of discharge: Labs from last 24 hours 07/17/16 07:47 WBC 7.8 RBC 5.11 Hgb 13.7 Hct 40.8 MCV 79.8 L MCH 27 MCHC 33.6 RDW 15.4 Plt Count 173 MPV 12.0 Neut % (Auto) 63.1 Lymph % (Auto) 23.1 [place] % (Auto) 9.9 Eos % (Auto) 2.8 Baso % (Auto) 0.6 Neut # (Auto) 4.9 Lymph # (Auto) 1.8 [place] # (Auto) 0.8 Eos # (Auto) 0.2 Baso # (Auto) 0.1 Immature Gran % 0.5 Nucleated RBC % 0.0 Immature Gran # 0.04 Nucleated RBCs # 0.00 - Imaging and Cardiology Procedure: Chest x-ray: report reviewed by me DS: Provider Expected date of discharge: 07/17/16 Giovani Acosta Wesley, MD, personally performed the services described in this documentation, ascribed by Neha Millan RN in my presence, and it is both accurate and complete [id number] .
--- NOTE | 2016-07-18 06:58 | Physician Query Form ---
CLICK EDIT DOCUMENT TO SELECT QUERY ANSWER --> OK --> SIGN Stacey Cardenas RN, CCDS Certified Clinical Transmission Line Engineer W) [phone] (f) [phone] [email or web address] PROVIDERS: Make your selection(s) from the choices in EACH section by typing an "x" and enter comments in the comment section. Please use your independent medical judgment in providing your response. This request does not imply that any particular answer is desired or expected. CLINICAL INDICATORS: (Providers should not edit this section) The medical record indicates that the patient was admitted with syncope, weakness, dizziness creatinine of 2.20# and GFR of 28# . Clarify which of the following most accurately represents the patient's renal status: ( ) Acute kidney injury (non-traumatic) ( ) Acute renal failure ( ) Acute renal failure with underlying Chronic Kidney Disease (CKD) - please provide stage below ( ) Acute renal failure with pathological renal lesion ( ) Acute renal failure with necrosis ( ) tubular ( ) medullary ( ) cortical ( ) CKD - please provide stage below ( ) End Stage Renal Disease ( ) Acute interstitial nephritis ( ) Hepatorenal syndrome ( ) Other, please specify: ( ) Clinically unable to determine Chronic Kidney Disease Stages Source: National Kidney Disease Foundation ( ) Stage I (eGFR > or = 90) ( ) Stage II (eGFR 60 - 89) ( ) Stage III (eGFR 30 - 59) ( ) Stage IV (eGFR 15 - 29) ( ) Stage V (eGFR < 15 or dialysis) COMMENTS: PLEASE ALSO DOCUMENT RESPONSE IN PROGRESS NOTES AND/OR DISCHARGE SUMMARY Use of terms such as suspected, likely, or probable (associated with a specific diagnosis that is being evaluated, monitored, or treated as if it exists) are acceptable and can be restated in the discharge summary if not ruled out. MTDD
--- NOTE | 2016-07-21 07:22 | Physician Query Form ---
CLICK EDIT DOCUMENT TO SELECT QUERY ANSWER --> OK --> SIGN Stacey Cardenas RN, CCDS Certified Clinical Green Chain Marker W) [phone] (f) [phone] [email or web address] PROVIDERS: Make your selection(s) from the choices in EACH section by typing an "x" and enter comments in the comment section. Please use your independent medical judgment in providing your response. This request does not imply that any particular answer is desired or expected. CLINICAL INDICATORS: (Providers should not edit this section) The medical record indicates that the patient was admitted with syncope, weakness, dizziness creatinine of 2.20# and GFR of 28# . Clarify which of the following most accurately represents the patient's renal status: ( ) Acute kidney injury (non-traumatic) ( ) Acute renal failure ( ) Acute renal failure with underlying Chronic Kidney Disease (CKD) - please provide stage below ( ) Acute renal failure with pathological renal lesion ( ) Acute renal failure with necrosis ( ) tubular ( ) medullary ( ) cortical ( ) CKD - please provide stage below ( ) End Stage Renal Disease ( ) Acute interstitial nephritis ( ) Hepatorenal syndrome ( ) Other, please specify: ( ) Clinically unable to determine Chronic Kidney Disease Stages Source: National Kidney Disease Foundation ( ) Stage I (eGFR > or = 90) ( ) Stage II (eGFR 60 - 89) ( ) Stage III (eGFR 30 - 59) ( ) Stage IV (eGFR 15 - 29) ( ) Stage V (eGFR < 15 or dialysis) COMMENTS: PLEASE ALSO DOCUMENT RESPONSE IN PROGRESS NOTES AND/OR DISCHARGE SUMMARY Use of terms such as suspected, likely, or probable (associated with a specific diagnosis that is being evaluated, monitored, or treated as if it exists) are acceptable and can be restated in the discharge summary if not ruled out. MTDD
--- NOTE | 2016-07-22 07:55 | Physician Query Form ---
CLICK EDIT DOCUMENT TO SELECT QUERY ANSWER --> OK --> SIGN Stacey Cardenas RN, CCDS Certified Clinical Resource Paraprofessional W) [phone] (f) [phone] [email or web address] PROVIDERS: Make your selection(s) from the choices in EACH section by typing an "x" and enter comments in the comment section. Please use your independent medical judgment in providing your response. This request does not imply that any particular answer is desired or expected. CLINICAL INDICATORS: (Providers should not edit this section) The medical record indicates that the patient was admitted with syncope, weakness, dizziness creatinine of 2.20# and GFR of 28# . Clarify which of the following most accurately represents the patient's renal status: ( ) Acute kidney injury (non-traumatic) ( ) Acute renal failure ( ) Acute renal failure with underlying Chronic Kidney Disease (CKD) - please provide stage below ( ) Acute renal failure with pathological renal lesion ( ) Acute renal failure with necrosis ( ) tubular ( ) medullary ( ) cortical (x ) CKD - please provide stage below ( ) End Stage Renal Disease ( ) Acute interstitial nephritis ( ) Hepatorenal syndrome ( ) Other, please specify: ( ) Clinically unable to determine Chronic Kidney Disease Stages Source: National Kidney Disease Foundation ( ) Stage I (eGFR > or = 90) ( ) Stage II (eGFR 60 - 89) (x ) Stage III (eGFR 30 - 59) ( ) Stage IV (eGFR 15 - 29) ( ) Stage V (eGFR < 15 or dialysis) COMMENTS: PLEASE ALSO DOCUMENT RESPONSE IN PROGRESS NOTES AND/OR DISCHARGE SUMMARY Use of terms such as suspected, likely, or probable (associated with a specific diagnosis that is being evaluated, monitored, or treated as if it exists) are acceptable and can be restated in the discharge summary if not ruled out. MTDD
== END 2016-07-17 16:19 | disposition home or self-care (01) | DRG 312 ==
LOC: N.ED 10:14 → N.EDINP 11:51 → N.TELES 13:39
PROVIDERS: ADMIT Internal Medicine Interventional Cardiology; ATTEND Internal Medicine Interventional Cardiology